=== PATIENT | male | born 1965 | race Caucasian/White ===

== ENCOUNTER 2023-01-03 11:44 | Outpatient (CLI) | payer OTHER | END 2023-01-03 11:45 | disposition home or self-care (01) | LOC: CSHRAD 11:44 | PROVIDERS: ATTEND Psychiatry & Neurology Neurology | DX: R20.0 Anesthesia of skin (principal); M47.812 Spondylosis without myelopathy or radiculopathy, cervical region; M19.011 Primary osteoarthritis, right shoulder; M19.021 Primary osteoarthritis, right elbow; M19.041 Primary osteoarthritis, right hand | CPT/HCPCS: 72040 ==